=== PATIENT | male | born 1985 | race Caucasian/White ===

== ENCOUNTER → 2020-02-21 | Day surgery (SDC) | payer OTHER ==
[~2020-02-21] MED LIST: CELE50CA PO; CYCL15CA20 PO; IV RINGERS SOLUTION,LACTATED 1,000 ML IV SCH; ONDANSETRON PF 4 MG/2 ML VIAL. IV PRN; PROPOFOL 10,000 MCG/ML (20ML) VIAL IV ONE; RANI150C PO
[2020-02-21 11:29] VITALS: BP 114/57
--- NOTE | 2020-02-22 17:06 | PATHOLOGY ---
[facility] Accession Number: [id number] . 01 Material submitted: . colon - RANDOM BIOPSY . 02 Diagnosis: Colonic mucosa, random colon biopsies: - No significant pathologic abnormalities. (JPM:bairon; 02/22/2020) QMS 02/22/2020 1349 Local . 02 Comment: Sections of the random colon biopsy reveal multiple segments of colonic mucosa containing several, focally hyperplastic mucosal-associated lymphoid aggregates. There is no evidence of a chronic destructive colitis, lymphocytic colitis, or collagenous colitis. (JPM:bairon; 02/22/2020) . 02 Electronically signed: . William Gardner MD, Pathologist NPI- [id number] . 01 Gross description: . The specimen is received in formalin, labeled "Ana M, Jose Cruz, random colon BX, diarrhea" and consists of multiple fragments of cain-brown tissue measuring 1.8 x 0.7 x 0.2 cm in aggregate which are entirely submitted in A1. ([facility]; 02/21/2020) JFQ/JFQ 02/21/2020 1738 Local . 02 Pathologist provided ICD-10: R19.7, R15.9 . 02 CPT . 552141 Specimen Comment: A courtesy copy of this report has been sent [phone] Specimen Comment: [id number] Specimen Comment: Report sent to / DR [email or web address] Performed at: 01 [facility] [address], [place] [id number] MD Chuck Jason MD Phone: [phone] Performed at: 02 [facility] [address] [place], [place] [id number] MD William Gardner MD Phone: [phone]
== END | disposition home or self-care (01) ==
LOC: SURG 08:54
PROVIDERS: ATTEND Internal Medicine Gastroenterology
DX: R19.5 Other fecal abnormalities (principal); K51.80 Other ulcerative colitis without complications; K63.89 Other specified diseases of intestine; K21.9 Gastro-esophageal reflux disease without esophagitis; Z79.899 Other long term (current) drug therapy; Z98.890 Other specified postprocedural states
CPT/HCPCS: 45380; 88305; J2704; J7120; U0003-CS